=== PATIENT | female | born 1990 | race Caucasian/White ===

== ENCOUNTER → 2022-11-22 | Outpatient (CLI) | payer OTHER ==
[2022-12-03 11:15] LABS: HIV-1 RNA BY PCR <200 (.)
== END | disposition home or self-care (01) ==
LOC: LAB 17:10 → LAB SHORT 17:10
PROVIDERS: Internal Medicine
DX: Z11.3 Encounter for screening for infections with a predominantly sexual mode of transmission (principal)
CPT/HCPCS: 87901

== ENCOUNTER → 2022-12-02 | Outpatient (CLI) | payer OTHER ==
[2022-12-04 08:09] LABS: ESTRADIOL 68.2 pg/mL (.)
[2022-12-06 19:07] LABS: FREE TESTOSTERONE(DIRECT) 24.9 pg/mL (0.0-4.2); TESTOSTERONE, SERUM >1500 ng/dL (8-60)
== END | disposition home or self-care (01) ==
LOC: LAB 18:08 → LAB SHORT 18:08
PROVIDERS: Internal Medicine
DX: Z41.8 Encounter for other procedures for purposes other than remedying health state (principal); R79.89 Other specified abnormal findings of blood chemistry
CPT/HCPCS: 82670; 84402; 84403

== ENCOUNTER → 2023-02-10 | Outpatient (CLI) | payer OTHER ==
[2023-02-10 15:34] LABS: BASOPHILS ABSOLUTE AUTO 0.04 K/mm3 (0.00-0.23); BASOPHILS PERCENT AUTO 1 % (0-2); EOSINOPHILS ABSOLUTE AUTO 0.08 K/mm3 (0.00-0.68); EOSINOPHILS PERCENT AUTO 2 % (0-6); Hematocrit 48.8 % (37.0-53.0); Hemoglobin 16.1 g/dL (13.5-17.5); IMMATURE GRAN PERCENT AUTO 0 % (0-1); LYMPHOCYTES ABSOLUTE AUTO 1.88 K/mm3 (0.84-5.20); LYMPHOCYTES PERCENT AUTO 48 % (21-46); MONOCYTES ABSOLUTE AUTO 0.32 K/mm3 (0.16-1.47); MONOCYTES PERCENT AUTO 8 % (4-13); Mean Corpuscular HGB 30.6 pg (26.0-34.0); Mean Corpuscular Volume 93 fL (80-100); Mean Platelet Volume 10.2 fL (9.1-12.4); NEUTROPHILS ABSOLUTE AUTO 1.64 K/mm3 (1.96-9.15); NEUTROPHILS PERCENT AUTO 41 % (41-73); Platelet Count 275 K/mm3 (150-400); RDW Coefficient Variation 11.7 % (11.7-14.2); RDW Standard Deviation 39.8 fL (35.1-46.3); Red Blood Cell Count 5.27 M/mm3 (4.30-5.90); White Blood Cell Count 3.96 K/mm3 (4.00-11.30)
[2023-02-13 17:36] LABS: ESTRADIOL BY IMMUNOASSAY 22 pg/mL
[2023-02-13 20:07] LABS: A/G RATIO 1.8 (1.2-2.2); BILIRUBIN, TOTAL 1.4 mg/dL (0.0-1.2); CALCIUM, SERUM 9.7 mg/dL (8.7-10.2); CREATININE, SERUM 0.97 mg/dL (0.76-1.27); GLOBULIN, TOTAL 2.4 g/dL (1.5-4.5); POTASSIUM, SERUM 4.6 mmol/L (3.5-5.2); PROTEIN, TOTAL, SERUM 6.8 g/dL (6.0-8.5)
[2023-02-17 06:26] LABS: TESTOSTERONE, FREE BY DIALYSIS 125.7 pg/mL (47.0-244.0); TESTOSTERONE, TOTAL MASS SPEC 546.4 ng/dL (300.0-1080.0)
== END | disposition home or self-care (01) ==
LOC: LAB SHORT 13:30 → LAB 13:30
PROVIDERS: Internal Medicine
DX: E34.8 Other specified endocrine disorders (principal); R79.89 Other specified abnormal findings of blood chemistry
CPT/HCPCS: 80053; 82670; 84402; 84403; 85025

== ENCOUNTER → 2023-05-19 | Outpatient (CLI) | payer OTHER ==
[2023-05-22 01:24] LABS: ESTRADIOL BY IMMUNOASSAY 60 pg/mL
[2023-05-22 13:00] LABS: Bacterial Vaginosis PCR Negative (NEGATIVE); Candida Group, PCR NOT DETECTED (NOT DETECT); Candida glabrata-krusei, PCR NOT DETECTED (NOT DETECT)
[2023-05-27 02:17] LABS: TESTOSTERONE, FREE BY DIALYSIS 172.6 pg/mL (47.0-244.0)
== END | disposition home or self-care (01) ==
LOC: LAB 16:56 → LAB SHORT 16:56
PROVIDERS: Internal Medicine
DX: Z11.3 Encounter for screening for infections with a predominantly sexual mode of transmission (principal); Z41.8 Encounter for other procedures for purposes other than remedying health state; E34.8 Other specified endocrine disorders; R79.89 Other specified abnormal findings of blood chemistry; Z87.890 Personal history of sex reassignment
CPT/HCPCS: 82670; 84402; 84403; 86592; 87481; 87661; 87801

== ENCOUNTER → 2023-06-02 | Outpatient (CLI) | payer OTHER | LOC: LAB SHORT 15:01 → LAB EV 15:01 | DX: Z11.3 Encounter for screening for infections with a predominantly sexual mode of transmission (principal) ==

== ENCOUNTER 2023-10-04 20:58 | Emergency (ER) | payer OTHER ==
[~2023-10-04] VITALS: Ht 165.1 cm; Wt 72.6 kg
[2023-10-04 21:29] VITALS: BP 135/94
[2023-10-05] MEDS ORDERED: OLANZapine 5 MG Tab PO ONE (00:35)
[2023-10-05] MEDS ORDERED: OLAN5 PO (00:41)
== END 2023-10-05 00:45 | disposition home or self-care (01) ==
LOC: ER 20:58
DX: R44.0 Auditory hallucinations (principal); R44.1 Visual hallucinations; G47.00 Insomnia, unspecified
CPT/HCPCS: 99284; A9270

== ENCOUNTER → 2024-03-15 | Outpatient (CLI) | payer OTHER ==
[~2024-03-15] MED LIST: OLAN5 PO
[2024-03-15 16:56] LABS: Chlamydia Trachomatis Urine NOT DETECTED (NOT DETECT); Neisseria Gonorrhoea Urine NOT DETECTED (NOT DETECT)
[2024-03-17 16:49] LABS: HIV 1,2 COMBO ANTIGEN/ANTIBODY Negative (Negative)
[2024-03-23 13:55] LABS: TESTOSTERONE, FREE BY DIALYSIS 184.4 pg/mL (47.0-244.0); TESTOSTERONE, TOTAL MASS SPEC 696.8 ng/dL (300.0-1080.0)
== END | disposition home or self-care (01) ==
LOC: LAB SHORT 14:16
PROVIDERS: Internal Medicine
DX: Z11.3 Encounter for screening for infections with a predominantly sexual mode of transmission (principal); R73.03 Prediabetes; R79.89 Other specified abnormal findings of blood chemistry
CPT/HCPCS: 83036; 84402; 84403; 86592; 87389; 87491; 87591